=== PATIENT | male | born 1945 | race Two or more races ===

== ENCOUNTER 2020-11-19 09:15 | Emergency (ER) | payer OTHER ==
[~2020-11-19] VITALS: Ht 167.6 cm; Wt 77.1 kg
[2020-11-19] MEDS ORDERED: LIDOCAINE 1% HCL (LOCAL ANESTH.) INJ 20ML MDV IJ ONE (09:45)
[2020-11-19 10:30] VITALS: BP 120/77
== END 2020-11-19 10:45 | disposition home or self-care (01) ==
LOC: ER 09:15
DX: S71.111A Laceration without foreign body, right thigh, initial encounter (principal); W26.8XXA Contact with other sharp object(s), not elsewhere classified, initial encounter; Y93.89 Activity, other specified; Y92.89 Other specified places as the place of occurrence of the external cause; Y99.8 Other external cause status
CPT/HCPCS: 12005; 99283; J2001